=== PATIENT | male | born 1955 | race Caucasian/White ===

== ENCOUNTER 2017-08-16 18:01 | Observation (INO) ==
[2017-08-17] MEDS ORDERED: Albuterol 2.5 MG/3 ML NEBULIZER IH PRN (01:07)
[2017-08-17] MEDS ORDERED: Nitroglycerin 0.4 MG TAB.SUBL SL PRN (01:07)
[2017-08-17] MEDS ORDERED: *HR* Morphine 2 MG/ML SYRINGE IVP PRN (01:09)
[2017-08-17] MEDS ORDERED: Ondansetron 4 MG/2 ML VIAL IVP PRN (01:09)
[2017-08-17] MEDS ORDERED: Acetaminophen 325 MG TABLET PO PRN (01:09)
[2017-08-17] MEDS ORDERED: Naloxone 0.4 MG/ML INJ IVP PRN (01:09)
[2017-08-17] MEDS ORDERED: MOM Conc 10 ML UD.LIQ PO PRN (01:09)
[2017-08-17] MEDS ORDERED: Furosemide 40 MG/4 ML VIAL IVP STA (01:12)
[2017-08-17] MEDS ORDERED: FOSAMAX PO SCH (01:15)
--- NOTE | 2017-08-17 01:17 | Internal Med History&Physical ---
Date of Encounter: 08/17/17 Time of Encounter: 01:15 Assessment and Plan (1) Hip fracture, left Current visit: Yes Status: Acute Left greater trochanter fractures secondary to fall. Apparently he can bear weight but has lot of pain. Orthopedics has been consulted. Consult physical therapy. Pain management. Continue home medication. SCDs for DVT prophylaxis however if no surgery then he can be started on Lovenox. Qualifiers: Encounter type: initial encounter Fracture type: closed Qualified Code(s) : S72.002A - Fracture of unspecified part of neck of left femur, initial encounter for closed fracture (2) Acute diastolic CHF (congestive heart failure) Current visit: Yes Status: Acute Chest x-ray showed some vascular congestion. Previous EF about 60%. IV Lasix 401 and then resume his home dose of Lasix 40 twice a day by mouth check BMP in the morning (3) COPD (chronic obstructive pulmonary disease) Current visit: Yes Status: Acute Start duo nebs Qualifiers: COPD type: emphysema Emphysema type: unspecified Qualified Code(s): J43.9 - Emphysema, unspecified (4) Hypertension Current visit: Yes Status: Acute Resume home medication and daily monitoring Qualifiers: Hypertension type: essential hypertension Qualified Code(s): I10 - Essential (primary) hypertension (5) Dyslipidemia Current visit: Yes Status: Acute Resume home medication (6) UTI (urinary tract infection) Current visit: Yes Status: Acute Urine culture obtain UA is positive for leukocyte IV Rocephin added Qualifiers: Urinary tract infection type: site unspecified Hematuria presence: without hematuria Qualified Code(s): N39.0 - Urinary tract infection, site not specified Internal Medicine - H&P: HPI Chief complaint: Left hip pain Admitted From: Home Plans for Post Hospital Care: Transfer [facility] History of present illness: Mr. Gomez is a 62 year old male with medical history significant for hypertension dyslipidemia coronary artery disease CHF COPD CKD presented with a mechanical fall while he was taking care of his dog outside. He sustained left hip pain but he was able to ambulate due to pain continued to increase therefore he decided to come to ER where chest x-ray showed left greater trochanter comminuted fracture. CT did not show any intertrochanteric fracture. Dr. Mohamud from orthopedics was consulted. No history of headache neck pain chest pain dyspnea palpitation dysuria urgency frequency have actually hematochezia or hematemesis melena. UA is positive for leukocyte therefore cultures obtain and Rocephin has been started. Past Med Surg Social Fam HX - Past Medical History Medical history: CHF, COPD, diabetes, GERD, hyperlipidemia, hypertension, osteoporosis, TIA Psychiatric history: no psych history - Social History Smoking Status: Current every day smoker Smokeless Tobacco Status: No Alcohol use: none Drug use: none - Family History Mother Living Status: Hx Family Cardiac Disorders: Yes Internal Medicine - H&P: Meds Alendronate Sodium [Fosamax] 70 mg PO QWEEK 06/02/17 [History] Atorvastatin [Lipitor] 40 mg PO HS 06/02/17 [History] Budesonide/Formoterol 80/4.5 [Symbicort 80/4.5] 2 puff IH BIDR 06/02/17 [ History] Clopidogrel [Plavix] 75 mg PO DAILY 06/02/17 [History] Divalproex (24 HR) [Depakote ER (24 HR)] 1,000 mg PO HS 06/02/17 [History] Docusate [Colace] 100 mg PO BID 06/02/17 [History] Furosemide [Lasix] 40 mg PO BID 06/02/17 [History] Gabapentin [Neurontin] 100 mg PO TID 06/02/17 [History] Lisinopril [Zestril] 2.5 mg PO DAILY 06/02/17 [History] Metoprolol [Lopressor] 12.5 mg PO DAILY 06/02/17 [History] Montelukast [Singulair] 20 mg PO HS 06/02/17 [History] Morphine Sulfate [Malaika] 1 cap PO BID 06/02/17 [History] Pantoprazole Sodium [Protonix] 40 mg PO BID 06/02/17 [History] Primidone [Mysoline] 100 mg PO BID 06/02/17 [History] Propranolol [Inderal] 20 mg PO TID 06/02/17 [History] Ranitidine HCl [Acid Machine Stone Polisher Apprentice] 150 mg PO BID 06/02/17 [History] Spironolactone [Aldactone] 25 mg PO BID 06/02/17 [History] Venlafaxine HCl [Venlafaxine HCl ER] 37.5 mg PO DAILY 06/02/17 [History] hydrOXYzine HCl [Hydroxyzine HCl] 50 mg PO TID PRN 06/02/17 [History] 3 Allergy/AdvReac Type Severity Reaction Status Date / Time aspirin Allergy Hives Verified 06/02/17 10:54 All Systems PM: A 10-system review of systems was performed and is negative for pertinent findings except as documented above in the HPI. - Constitutional Constitutional: no chills, no fever(s), no night sweats - EENT Eyes: no change in vision, no discharge, no pain, no photophobia Ears: no ear discharge, no ear pain, no tinnitus Nose, mouth and throat: no dysphagia, no nasal discharge, no neck pain, no sore throat - Cardiovascular Cardiovascular ROS IM: no chest pain, no diaphoresis, no dyspnea, no lightheadedness, no palpitations, no syncope - Respiratory Respiratory: no cough, no dyspnea, no wheezing, no excessive phlegm production - Gastrointestinal Gastrointestinal: no abdominal pain, no diarrhea, no hematemesis, no hematochezia, no melena, no nausea, no vomiting - Musculoskeletal Musculoskeletal ROS IM: no numbness, no tingling Additional comments: After pain secondary to greater trochanter fracture and fall - Integumentary Integumentary IM: no rash, no unusual bruising - Neurological Neurological ROS: no confusion, no convulsions, no focal weakness, no numbness, no tingling, no tremor(s) - Hematologic/Lymphatic Hematologic/Lymphatic: no easy bruising - Constitutional Vitals: Temp Pulse Resp BP Pulse Ox 98.1 F 93 17 154/84 92 08/17/17 00:00 08/17/17 00:00 08/17/17 00:00 08/17/17 00:00 08/17/17 00:00 General appearance: Present: A&O X 3, pleasant, no acute distress, answers questions appropriately - Head Head exam: Present: atraumatic, normocephalic - Eye Eye exam: Present: PERRL, conjuntiva pink, sclera anicteric Pupils: Present: PERRL - Neck Neck exam general surgery: Present: supple, trachea midline. Absent: lymphadenopathy - Respiratory Respiratory exam: Present: CTAB. Absent: accessory muscle use, rales, rhonchi, wheezes - Cardiovascular Cardiovascular exam: Present: RRR, +S1, +S2. Absent: diastolic murmur, gallop, rubs, systolic murmur - GI/Abdominal GI/Abdominal exam: Present: normal bowel sounds, soft, no peritoneal signs. Absent: distended, tenderness - Extremities Exam Extremities exam: Present: warm, radial pulses palpable and symmetrical. Absent : calf tenderness, cyanotic, pedal edema Additional comments: Left knee has a small bruise but no significant effusion for range of motion and no joint instability though he is examined in supine position. He can internally rotate left hip with increase in pain on the left greater trochanter area. Localized tenderness is there. - Neurological Exam Neurological exam: Present: CN II-XII intact, oriented X3, no focal deficits. Absent: pronater drift, facial droop, speech deficit - Skin Skin exam: Present: dry, intact
[2017-08-17] MEDS: Divalproex (24 HR) 500 MG TABLET PO SCH ×2 (02:26→23:03)
[2017-08-17] MEDS: Famotidine 20 MG TABLET PO SCH ×3 (02:27→23:04)
[2017-08-17] MEDS: Spironolactone 25 MG TABLET PO SCH ×3 (02:27→23:04)
[2017-08-17] MEDS: Gabapentin 100 MG CAPSULE PO SCH ×4 (02:27→23:04)
[2017-08-17] MEDS: Furosemide 40 MG TABLET PO SCH ×3 (02:35→23:04)
[2017-08-17] MEDS: Ipratropium/Albuterol Neb 3 ML IH SCH ×5 (03:02→23:27)
[2017-08-17 06:27] LABS: BUN/Creatinine Ratio 16 (6-26); Blood Urea Nitrogen 19 mg/dL (8-26); Calcium 9.2 mg/dL (8.6-10.8); Carbon Dioxide 34 mEq/L (19-29); Chloride 98 mEq/L (98-109); Glucose 101 mg/dL (70-99); Osmolality,Calculated 290 (280-300); Potassium 4.1 mEq/L (3.5-4.5); Sodium 139 mEq/L (136-145); eGFR For African Americans > 60 (> 60); eGFR For Non-African Americans > 60 (> 60)
--- NOTE | 2017-08-17 06:45 | Orthopedic Consult Note ---
Date of Encounter: 08/17/17 Time of Encounter: 06:43 History of Present Illness HPI: Mr. Gomez is a 62 year old male Status post fall over the weekend with increasing pain in the left hip and inability to ambulate. Patient seen at [facility] transferred over for treatment. Physical exam left lower extremity neurovascular intact Decreased range of motion secondary to pain CT scan reviewed show fracture of the greater trochanter with concern for propagation into the intratrochanteric region. We will obtain MRI examinations monitoring to further evaluate the fracture pattern to determine if this is surgical versus nonsurgical. Past Med Surg Social Fam HX - Past Medical History Medical history: CHF, COPD, diabetes, GERD, hyperlipidemia, hypertension, osteoporosis, TIA Psychiatric history: no psych history - Social History Smoking Status: Current every day smoker Smokeless Tobacco Status: No Alcohol use: none Drug use: none - Family History Mother Living Status: Hx Family Cardiac Disorders: Yes Medications and Allergies Alendronate Sodium [Fosamax] 70 mg PO QWEEK 06/02/17 [History] Atorvastatin [Lipitor] 40 mg PO HS 06/02/17 [History] Budesonide/Formoterol 80/4.5 [Symbicort 80/4.5] 2 puff IH BIDR 06/02/17 [ History] Clopidogrel [Plavix] 75 mg PO DAILY 06/02/17 [History] Divalproex (24 HR) [Depakote ER (24 HR)] 1,000 mg PO HS 06/02/17 [History] Docusate [Colace] 100 mg PO BID 06/02/17 [History] Furosemide [Lasix] 40 mg PO BID 06/02/17 [History] Gabapentin [Neurontin] 100 mg PO TID 06/02/17 [History] Lisinopril [Zestril] 2.5 mg PO DAILY 06/02/17 [History] Metoprolol [Lopressor] 12.5 mg PO DAILY 06/02/17 [History] Montelukast [Singulair] 20 mg PO HS 06/02/17 [History] Morphine Sulfate [Malaika] 1 cap PO BID 06/02/17 [History] Pantoprazole Sodium [Protonix] 40 mg PO BID 06/02/17 [History] Primidone [Mysoline] 100 mg PO BID 06/02/17 [History] Propranolol [Inderal] 20 mg PO TID 06/02/17 [History] Ranitidine HCl [Acid Government Affairs Fellow] 150 mg PO BID 06/02/17 [History] Spironolactone [Aldactone] 25 mg PO BID 06/02/17 [History] Venlafaxine HCl [Venlafaxine HCl ER] 37.5 mg PO DAILY 06/02/17 [History] hydrOXYzine HCl [Hydroxyzine HCl] 50 mg PO TID PRN 06/02/17 [History] 3 Allergy/AdvReac Type Severity Reaction Status Date / Time aspirin Allergy Hives Verified 06/02/17 10:54 All Systems Reviewed: A 10-system review of systems was performed and is negative for pertinent findings except as documented above in the HPI. Physical Exam - Constitutional Vitals: Temp Pulse Resp BP Pulse Ox 99.1 F 70 17 124/81 96 08/17/17 04:41 08/17/17 04:41 08/17/17 04:41 08/17/17 04:41 08/17/17 04:41 Results - Labs Result Diagrams: 08/17/17 05:13 Labs: Abnormal lab results Carbon Dioxide 34 mEq/L (19-29) H 08/17/17 05:13 Glucose 101 mg/dL (70-99) H 08/17/17 05:13 All other labs normal. Consult Discharge Plan - Plan [facility]: [facility] [Primary Care Provider[facility] -
[2017-08-17] MEDS: Primidone 50 MG TABLET PO SCH ×2 (07:50→23:03)
[2017-08-17] MEDS: Venlafaxine XR (24 HR) 37.5 MG CAP.ER.24H PO SCH (07:52)
[2017-08-17] MEDS: Budesonide/Formoterol 80/4.5 MDI IH SCH ×2 (10:54→23:28)
--- NOTE | 2017-08-17 12:35 | Event Note ---
Date of Encounter: 08/17/17 Time of Encounter: 12:32 MRI reviewed: IMPRESSION: 1. The MRI confirms a nondisplaced greater trochanteric left hip fracture as described above. 2. The MRI also reveals an incomplete fracture line extending to the intertrochanteric region of the left hip. This does not reach the lesser trochanter at this time. 3. Note is made of acute strains of the distal left gluteal and adductor musculature about the left hip. There is an associated left hip joint effusion as expected. 4. Mild osteoarthritis of both hips. Plan reviewed and discussed with . Conservative treatment. Diet as tolerated. WB status: TTWB only x 4-6 weeks to allow fracture to heel. f/up in office in 2 weeks. Appt set, and faxed to the floor 1600: Attempted to call to review plan: [phone] Unable to reach at this time. Noted with nursing staff. Unable to leave VM
--- NOTE | 2017-08-17 12:37 | Internal Med Progress Note ---
Date of Encounter: 08/17/17 Time of Encounter: 12:34 - Assessment and plan (1) Hip fracture, left Current Visit: Yes Status: Acute Assessment and plan: Reviewed CT and hip X rays Pt was seen by Ortho who recommend MRI of Hip - which showed non displaced greater trochanteric left hip fx, incomplete fracture line extending to the inter trochanteric region Ortho on board May be conservative management at this point PT / OT eval on Lovenox for DVT prophylaxis IV analgesics Qualifiers: Encounter type: initial encounter Fracture type: closed Qualified Code(s) : S72.002A - Fracture of unspecified part of neck of left femur, initial encounter for closed fracture (2) Acute diastolic CHF (congestive heart failure) Current Visit: Yes Status: Acute Assessment and plan: Very mild.. CXR sowed slight vascular congestion now improved Cont PO Lasix and other home meds (3) UTI (urinary tract infection) Current Visit: Yes Status: Acute Assessment and plan: UA showed esterase +, could be contaminated too for now cont abx..If urine cx shows no growth will d/c Abx Qualifiers: Urinary tract infection type: site unspecified Hematuria presence: without hematuria Qualified Code(s): N39.0 - Urinary tract infection, site not specified (4) COPD (chronic obstructive pulmonary disease) Current Visit: Yes Status: Chronic Assessment and plan: not in exacerbation cont broncho dilators PRN Qualifiers: COPD type: emphysema Emphysema type: unspecified Qualified Code(s): J43.9 - Emphysema, unspecified (5) Dyslipidemia Current Visit: Yes Status: Chronic Assessment and plan: on home meds (6) Hypertension Current Visit: Yes Status: Acute Assessment and plan: stable with home meds Qualifiers: Hypertension type: essential hypertension Qualified Code(s): I10 - Essential (primary) hypertension - Subjective Interval history: Mr. oGmez is a 62 year old male with medical history significant for hypertension dyslipidemia coronary artery disease CHF COPD CKD presented with a mechanical fall while he was taking care of his dog outside. He sustained left hip pain but he was able to ambulate due to pain continued to increase therefore he decided to go to ER where Hip x-ray and CT scan showed mild non displaced left greater trochanter comminuted fracture. Pt was admitted here for further care. His pain is tolerable with pain medication. he denied any CP / SOB - Constitutional Vitals: Temp Pulse Resp BP Pulse Ox 98.2 F 72 18 107/68 91 08/17/17 11:45 08/17/17 11:45 08/17/17 11:45 08/17/17 11:45 08/17/17 11:45 General appearance: Present: A&O X 3, pleasant, no acute distress, answers questions appropriately - Respiratory Respiratory exam: Present: decreased breath sounds, wheezes. Absent: rales, respiratory distress, rhonchi - Cardiovascular Cardiovascular exam: Present: RRR, +S1, +S2. Absent: systolic murmur - GI/Abdominal GI/Abdominal exam: Present: normal bowel sounds, soft. Absent: rebound, rigid, tenderness - Extremities Exam Extremities exam: Present: tenderness (moderate tenderness in Left hip area). Absent: calf tenderness, pedal edema Additional comments: No erythema noticed over Left hip Limited ROM in Left hip due to severe pain - Back Exam Back exam: Absent: CVA tenderness (L), CVA tenderness (R) - Neurological Exam Neurological exam: Present: alert, oriented X3 - Psychiatric Psychiatric exam: Present: normal affect, normal mood Internal Medicine: Result - Labs CBC & Chem 7: 08/17/17 05:13 Labs: BMP 08/17/17 05:13 Sodium 139 Potassium 4.1 Chloride 98 Carbon Dioxide 34 H BUN 19 Creatinine 1.17 Glucose 101 H Calcium 9.2 - Impressions Impressions Hip MRI 08/17/17 06:38 IMPRESSION: 1. The MRI confirms a nondisplaced greater trochanteric left hip fracture as described above. 2. The MRI also reveals an incomplete fracture line extending to the intertrochanteric region of the left hip. This does not reach the lesser trochanter at this time. 3. Note is made of acute strains of the distal left gluteal and adductor musculature about the left hip. There is an associated left hip joint effusion as expected. 4. Mild osteoarthritis of both hips. D/ / Mustapha Carvajal MD / Mustapha Carvajal MD Interpreting Provider: Mustapha Carvajal MD - VTE Documentation of Mechanical Device: Intermittent pneumatic compression device Consult Discharge Plan - Plan [facility]errals: [facility] [Primary Care Provider] -
[2017-08-18] MEDS: Ipratropium/Albuterol Neb 3 ML IH SCH ×3 (04:47→16:24)
--- NOTE | 2017-08-18 08:10 | Orthopedics Progress Note ---
Date of Encounter: 08/18/17 Time of Encounter: 08:09 Subjective Interval history: patient seen this morning still complaining of some hip pain. Discussed a treatment plan based on MRI which shows greater trocar fracture with some extension into the intertrochanteric region but no communication with medial cortex. Patient has significant medical comorbidities high-risk surgical candidate we will continue to monitor with serial x-rays the plan is for minimal weightbearing nonoperative management. Objective Vital signs: Vital Signs Temp Pulse Resp BP Pulse Ox 08/18/17 07:04 98.8 F 82 14 129/79 97 08/18/17 05:03 92 08/18/17 04:47 16 92 08/18/17 03:40 98.5 F 64 16 128/71 98 08/17/17 23:28 16 93 08/17/17 23:27 99.2 F 73 16 134/84 94 08/17/17 19:40 99.3 F 81 16 95/60 93 08/17/17 16:42 99.0 F 71 15 124/77 93 08/17/17 15:26 18 91 08/17/17 11:45 98.2 F 72 18 107/68 91 08/17/17 11:24 99.0 F 68 14 118/77 94 08/17/17 10:58 15 92 Intake and Output 08/17/17 08/18/17 08/18/17 23:59 07:59 15:59 Intake Total 480 / 480 Output Total 350 / 350 350 / 350 Balance 130 / 130 -350 / -350 Intake: Oral 480 / 480 Output: Urine 350 / 350 350 / 350 Other: Meal Dinner Percent of Meal Consumed 100% Weight 88.7 kg Blood Glucose* 142 127 Patient Weight 08/18/17 23:59 Weight 88.7 kg - Labs CBC & BMP: 08/17/17 05:13 Labs: Abnormal lab results Carbon Dioxide 34 mEq/L (19-29) H 08/17/17 05:13 Glucose 101 mg/dL (70-99) H 08/17/17 05:13 POC Glucose 127 (58-89) H 08/18/17 07:08 - VTE Documentation of Mechanical Device: Intermittent pneumatic compression device Consult Discharge Plan - Plan Referrals: Fe Arellano, PAC [Physician Jewelry Appraiser] - 08/31/17 1:40 pm [facility] [Primary Care Provider] -
[2017-08-18] MEDS: Furosemide 40 MG TABLET PO SCH (08:30)
[2017-08-18] MEDS: Famotidine 20 MG TABLET PO SCH (08:30)
[2017-08-18] MEDS: Primidone 50 MG TABLET PO SCH (08:30)
[2017-08-18] MEDS: Spironolactone 25 MG TABLET PO SCH (08:30)
[2017-08-18] MEDS: Venlafaxine XR (24 HR) 37.5 MG CAP.ER.24H PO SCH (08:30)
[2017-08-18] MEDS: Gabapentin 100 MG CAPSULE PO SCH ×2 (09:00→15:15)
[2017-08-18] MEDS: Budesonide/Formoterol 80/4.5 MDI IH SCH (11:06)
[2017-08-18] MEDS ORDERED: *HR* OxyCODONE/APAP 5/325 TABLET PO PRN (11:16)
--- NOTE | 2017-08-18 12:28 | Internal Med Progress Note ---
Date of Encounter: 08/18/17 Time of Encounter: 11:15 - Assessment and plan (1) Hip fracture, left Current Visit: Yes Status: Acute Assessment and plan: Reviewed CT and hip X rays Pt was seen by Ortho who recommend MRI of Hip - which showed non displaced greater trochanteric left hip fx, incomplete fracture line extending to the inter trochanteric region Ortho on board May be conservative management at this point PT / OT eval on Lovenox for DVT prophylaxis IV and PO analgesics May need short term rehab .Pt prefers to go to [facility] for that SW is working on it Qualifiers: Encounter type: initial encounter Fracture type: closed Qualified Code(s) : S72.002A - Fracture of unspecified part of neck of left femur, initial encounter for closed fracture (2) Acute diastolic CHF (congestive heart failure) Current Visit: Yes Status: Acute Assessment and plan: Very mild.. CXR sowed slight vascular congestion now improved Cont PO Lasix and other home meds (3) UTI (urinary tract infection) Current Visit: Yes Status: Acute Assessment and plan: UA showed esterase +, could be contaminated too for now cont abx..If urine cx shows no growth will d/c Abx Qualifiers: Urinary tract infection type: site unspecified Hematuria presence: without hematuria Qualified Code(s): N39.0 - Urinary tract infection, site not specified (4) COPD (chronic obstructive pulmonary disease) Current Visit: Yes Status: Chronic Assessment and plan: not in exacerbation cont broncho dilators PRN Qualifiers: COPD type: emphysema Emphysema type: unspecified Qualified Code(s): J43.9 - Emphysema, unspecified (5) Dyslipidemia Current Visit: Yes Status: Chronic Assessment and plan: on home meds (6) Hypertension Current Visit: Yes Status: Acute Assessment and plan: stable with home meds Qualifiers: Hypertension type: essential hypertension Qualified Code(s): I10 - Essential (primary) hypertension - Subjective Interval history: Mr. Gomez is a 62 year old male with medical history significant for hypertension dyslipidemia coronary artery disease CHF COPD CKD presented with a mechanical fall while he was taking care of his dog outside. He sustained left hip pain but he was able to ambulate due to pain continued to increase therefore he decided to go to ER where Hip x-ray and CT scan showed mild non displaced left greater trochanter comminuted fracture. Pt was admitted here for further care. His pain is tolerable with pain medication. He denied any CP / SOB..He is comfortably resting in the bed. - Constitutional Vitals: Temp Pulse Resp BP Pulse Ox 98.8 F 82 20 129/79 92 08/18/17 07:04 08/18/17 07:04 08/18/17 11:07 08/18/17 07:04 08/18/17 11:07 General appearance: Present: A&O X 3, pleasant, no acute distress, answers questions appropriately - Head Head exam: Present: atraumatic, normal inspection - Neck Neck exam general surgery: Present: supple - Respiratory Respiratory exam: Present: decreased breath sounds, wheezes (mild). Absent: chest wall tenderness, rales, respiratory distress, rhonchi - Cardiovascular Cardiovascular exam: Present: RRR, +S1, +S2. Absent: systolic murmur - GI/Abdominal GI/Abdominal exam: Present: soft. Absent: rebound, rigid, tenderness - Extremities Exam Extremities exam: Present: tenderness (mild tenderness Left hip area). Absent: calf tenderness, pedal edema Additional comments: Limited ROM in Left hip due to pain - Back Exam Back exam: Absent: CVA tenderness (L), CVA tenderness (R) - Neurological Exam Neurological exam: Present: alert, oriented X3 - Psychiatric Psychiatric exam: Present: normal affect, normal mood Internal Medicine: Result - Labs CBC & Chem 7: 08/17/17 05:13 - VTE Documentation of Mechanical Device: Intermittent pneumatic compression device Consult Discharge Plan - Plan Referrals: Fe Arellano PAC [Physician Manufacturing Engineering Professor] - 08/31/17 1:40 pm [facility] [Primary Care Provider[facility] -
[2017-08-18 12:30] VITALS: BP 108/73
--- NOTE | 2017-08-18 16:10 | Discharge Summary ---
Date of Encounter: 08/18/17 Time of Encounter: 16:02 - Discharge Diagnosis (1) Hip fracture, left Priority: Primary Status: Acute Qualifiers: Encounter type: initial encounter Fracture type: closed Qualified Code(s) : S72.002A - Fracture of unspecified part of neck of left femur, initial encounter for closed fracture (2) Acute diastolic CHF (congestive heart failure) Priority: Primary Status: Acute (3) COPD (chronic obstructive pulmonary disease) Priority: Secondary Status: Chronic Qualifiers: COPD type: emphysema Emphysema type: unspecified Qualified Code(s): J43.9 - Emphysema, unspecified (4) Dyslipidemia Priority: Secondary Status: Chronic (5) Hypertension Priority: Secondary Status: Acute Qualifiers: Hypertension type: essential hypertension Qualified Code(s): I10 - Essential (primary) hypertension - Discharge Medications Prescriptions: OxyCODONE/APAP 5/325 [Percocet 5/325 MG] 1 each PO Q6HR PRN #20 tablet PRN Reason: Pain Morphine Sulfate [Malaika] 30 mg PO BID #15 cap.er.pel Home Medications: Alendronate Sodium [Fosamax] 70 mg PO QWEEK 06/02/17 [History] Atorvastatin [Lipitor] 40 mg PO HS 06/02/17 [History] Budesonide/Formoterol 80/4.5 [Symbicort 80/4.5] 2 puff IH BIDR 06/02/17 [ History] Clopidogrel [Plavix] 75 mg PO DAILY 06/02/17 [History] Divalproex (24 HR) [Depakote ER (24 HR)] 1,000 mg PO HS 06/02/17 [History] Docusate [Colace] 100 mg PO BID 06/02/17 [History] Furosemide [Lasix] 40 mg PO BID 06/02/17 [History] Gabapentin [Neurontin] 100 mg PO TID 06/02/17 [History] Lisinopril [Zestril] 2.5 mg PO DAILY 06/02/17 [History] Metoprolol [Lopressor] 12.5 mg PO DAILY 06/02/17 [History] Montelukast [Singulair] 10 mg PO HS 06/02/17 [History] Pantoprazole Sodium [Protonix] 40 mg PO BID 06/02/17 [History] Primidone [Mysoline] 100 mg PO BID 06/02/17 [History] Propranolol [Inderal] 10 mg PO TID 06/02/17 [History] Ranitidine HCl [Acid Banana Carrier] 150 mg PO BID 06/02/17 [History] Spironolactone [Aldactone] 25 mg PO BID 06/02/17 [History] hydrOXYzine HCl [Hydroxyzine HCl] 50 mg PO TID PRN 06/02/17 [History] Venlafaxine XR (24 HR) [Effexor Xr] 300 mg PO QAM 08/17/17 [History] Ipratropium/Albuterol Neb [Duoneb] 3 ml IH QIDR PRN inhsol 08/18/17 [Rx] Morphine Sulfate [Malaika] 30 mg PO BID #15 cap.er.pel 08/18/17 [Rx] OxyCODONE/APAP 5/325 [Percocet 5/325 MG] 1 each PO Q6HR PRN #20 tablet 08/18/17 [Rx] Allergies/Adverse Reactions: 3 Allergy/AdvReac Type Severity Reaction Status Date / Time aspirin Allergy Hives Verified 06/02/17 10:54 Procedures/tests Complete & Pending: Procedures Performed prior 72 hours Category Date Time Status MR hip LT wo con [MR] Stat MRI 08/17/17 06:38 Completed Date of admission: 08/16/17 19:49 [facility] care physician: [facility] Consults: 08/17/17 01:11 Consult to Physician [CONS] Routine Consulting Provider: Martínez Prater Reason for Consult: Right greater trochanter fracture. ER already notified Dr. Mohamud Time Notified: 01:12 Call Completed: Yes 08/17/17 19:08 Consult to Nutrition [CONS] Routine Comment: Consulting Provider: NUTRITION Reason for Dietary Consult: MST Score 08/18/17 11:07 Consult to Physical Therapy [CONS] Routine Comment: Evaluate, develop and implement POC Reason for Consult: Left hip fracture OT [Consult to Occupational Therapy] [CONS] Routine Comment: Evaluate, develop and implement POC Reason for Consult: Left hip fracture 08/18/17 11:18 Consult to Set Up Person [CONS] Routine Reason for SW Consult: Possible follow up therapy. - Patient Status Disposition: Transfer SNF Condition: Good Overall status at discharge: patient is back to baseline - Discharge Instructions Follow Up With: Fe Arellano PAC [Physician Pattern Setter] - 08/31/17 1:40 pm [facility],PCP [Primary Care Provider] - Martínez Prater MD [Partnered Physician] - Additional Instructions: Need to f/u with Ortho Dr. Prater in 1 week - Diet and Activity Activity: as per physical therapy Diet: low salt diet Interval History: Mr. Gomez is a 62 year old male with medical history significant for hypertension dyslipidemia coronary artery disease CHF COPD CKD presented with a mechanical fall while he was taking care of his dog outside. He sustained left hip pain but he was able to ambulate due to pain continued to increase therefore he decided to go to ER where Hip x-ray and CT scan showed mild non displaced left greater trochanter comminuted fracture. Pt was admitted here for pain management and further care regarding his hip fracture. Pt was evaluated by Ortho who recommend for conservative management only, with serial X rays of hip and minimal weightbearing. So will d/c him to ECF for short term PT / OT. Hospital course: Mr. Gomez is a 62 year old male - Time Spent with Patient Total time spent providing and/or coordinating discharge services: - Constitutional Vitals: Temp Pulse Resp BP Pulse Ox 98.5 F 66 15 108/73 97 08/18/17 12:28 08/18/17 12:28 08/18/17 12:28 08/18/17 12:28 08/18/17 12:28 General appearance: Present: A&O X 3, pleasant, no acute distress, answers questions appropriately - Head Head exam: Present: atraumatic, normal inspection - Respiratory Respiratory exam: Present: decreased breath sounds. Absent: rales, respiratory distress, rhonchi, wheezes - Cardiovascular Cardiovascular exam: Present: RRR, +S1, +S2. Absent: rubs, systolic murmur - GI/Abdominal GI/Abdominal exam: Present: soft. Absent: distended, rebound, rigid, tenderness - Extremities Exam Extremities exam: Present: tenderness (mild tenderness in Left hip). Absent: calf tenderness, pedal edema Additional comments: limited ROM in Left hip due to pain - Neurological Exam Neurological exam: Present: alert, oriented X3 - Psychiatric Psychiatric exam: Present: normal affect, normal mood - VTE Documentation of Mechanical Device: Intermittent pneumatic compression device
--- NOTE | 2017-08-18 16:15 | Physician Discharge Referral ---
ExtendedCare Referral Info Transfer To: F Provider in Charge after Transfer: PCP Institutional Level of Care: Skilled - Diagnosis (1) Hip fracture, left Status: Acute (2) Acute diastolic CHF (congestive heart failure) Status: Acute (3) COPD (chronic obstructive pulmonary disease) Status: Chronic (4) Dyslipidemia Status: Chronic (5) Hypertension Status: Acute - Transfer Medications Prescriptions: OxyCODONE/APAP 5/325 [Percocet 5/325 MG] 1 each PO Q6HR PRN #20 tablet PRN Reason: Pain Morphine Sulfate [Malaika] 30 mg PO BID #15 cap.er.pel Home Medications: Alendronate Sodium [Fosamax] 70 mg PO QWEEK 06/02/17 [History] Atorvastatin [Lipitor] 40 mg PO HS 06/02/17 [History] Budesonide/Formoterol 80/4.5 [Symbicort 80/4.5] 2 puff IH BIDR 06/02/17 [ History] Clopidogrel [Plavix] 75 mg PO DAILY 06/02/17 [History] Divalproex (24 HR) [Depakote ER (24 HR)] 1,000 mg PO HS 06/02/17 [History] Docusate [Colace] 100 mg PO BID 06/02/17 [History] Furosemide [Lasix] 40 mg PO BID 06/02/17 [History] Gabapentin [Neurontin] 100 mg PO TID 06/02/17 [History] Lisinopril [Zestril] 2.5 mg PO DAILY 06/02/17 [History] Metoprolol [Lopressor] 12.5 mg PO DAILY 06/02/17 [History] Montelukast [Singulair] 10 mg PO HS 06/02/17 [History] Pantoprazole Sodium [Protonix] 40 mg PO BID 06/02/17 [History] Primidone [Mysoline] 100 mg PO BID 06/02/17 [History] Propranolol [Inderal] 10 mg PO TID 06/02/17 [History] Ranitidine HCl [Acid Coke Crusher Operator] 150 mg PO BID 06/02/17 [History] Spironolactone [Aldactone] 25 mg PO BID 06/02/17 [History] hydrOXYzine HCl [Hydroxyzine HCl] 50 mg PO TID PRN 06/02/17 [History] Venlafaxine XR (24 HR) [Effexor Xr] 300 mg PO QAM 08/17/17 [History] Ipratropium/Albuterol Neb [Duoneb] 3 ml IH QIDR PRN inhsol 08/18/17 [Rx] Morphine Sulfate [Malaika] 30 mg PO BID #15 cap.er.pel 08/18/17 [Rx] OxyCODONE/APAP 5/325 [Percocet 5/325 MG] 1 each PO Q6HR PRN #20 tablet 08/18/17 [Rx] Allergies/Adverse Reactions: 3 Allergy/AdvReac Type Severity Reaction Status Date / Time aspirin Allergy Hives Verified 06/02/17 10:54 - Respiratory Orders Smoking Cessation: Smoking cessation has been advised. For more information, call the [place] Tobacco Quit Line at 6-674-PFBC-NOW. CERTIFICATION: I certify that the transfer of the above named patient to an Extended Care Facility is necessary for the continuing treatment of the diagnosis listed. The above information is true and accurate reflection of patient's current condition. Confidential - Redisclosure prohibited without a patient's written consent.
== END 2017-08-18 18:30 ==
LOC: 3ANU 19:49 → INTOOBSV 19:49 → SUATTDRO 19:49 → 3NENU 20:06
PROVIDERS: ADMIT Internal Medicine; ATTEND Family Medicine

== ENCOUNTER 2022-05-05 06:05 | Inpatient (IN) ==
[2022-05-05] MEDS ORDERED: CeFAZolin Syr 2,000MG/20 ML 2,000 MG/20 ML SYRINGE IVPB ONE (06:13)
[2022-05-05] MEDS ORDERED: Ringers Solution, Lactated 1,000 ML IVC SCH (06:15)
[2022-05-05] MEDS ORDERED: Protamine Sulfate 50 MG/5 ML VIAL IVP ONE (07:06)
[2022-05-05] MEDS ORDERED: Heparin 1,000 UNITS/500 mL 500 ML ONE (07:06)
[2022-05-05] MEDS ORDERED: Ipratropium/Albuterol Neb 3 ML IH ONE (07:07)
[2022-05-05] MEDS ORDERED: *HR* Heparin 5,000 UNIT/ML VIAL ONE ×2 (07:14→07:38)
[2022-05-05] MEDS ORDERED: *HR* FentaNYL (PF) 100 MCG/2 ML VIAL ONE (07:14)
[2022-05-05] MEDS ORDERED: Ondansetron 4 MG/2 ML VIAL ONE (07:15)
[2022-05-05] MEDS ORDERED: Lidocaine -MPF 2% 5 ML VIAL ONE (07:15)
[2022-05-05] MEDS ORDERED: *HR* Succinylcholine 200 MG/10 ML VIAL IVP ONE (07:15)
[2022-05-05] MEDS ORDERED: *HR* Rocuronium Bromide 50 MG/5 ML VIAL ONE ×2 (07:15→10:50)
[2022-05-05] MEDS ORDERED: *HR* Propofol 200 MG/20 ML VIAL IVP ONE ×2 (07:15→09:52)
[2022-05-05] MEDS ORDERED: *HR* HYDROmorphone PF 0.5 MG/0.5 ML SYRINGE IVP PRN (07:15)
[2022-05-05] MEDS ORDERED: *HR* Phenylephrine 10 MG/ML VIAL ONE (07:15)
[2022-05-05] MEDS ORDERED: Lidocaine HCL 4 ML Topical Solution (Laryng-O-Jet Kit Sterile Pak) TP ONE (07:15)
[2022-05-05] MEDS ORDERED: *HR* Remifentanil 2 MG VIAL IVP ONE (07:22)
[2022-05-05] MEDS ORDERED: Albumin Human 5% 0 GM/0 ML IV.SOLN ONE (07:38)
[2022-05-05] MEDS ORDERED: Dexmedetomidine HCl 0 MCG/0 ML MLS IVC ONE (07:38)
[2022-05-05] MEDS ORDERED: *HR* Vasopressin 20 UNIT/ML VIAL ONE (07:39)
[2022-05-05] MEDS ORDERED: niCARdipine 0 MG/0 ML MLS IVC ONE (07:39)
[2022-05-05] MEDS ORDERED: ceFAZolin 1,000 MG, Sodium Chloride IRRigation 1,000 ML IR ONE (07:45)
[2022-05-05] MEDS ORDERED: EPHEDrine 50 MG/ML VIAL ONE ×2 (09:15→11:28)
[2022-05-05] MEDS ORDERED: Acetaminophen IV 1,000 MG/100 ML BAG IVPB ONE ×2 (11:16→11:20)
[2022-05-05] MEDS ORDERED: Sugammadex Sodium 200 MG/2 ML VIAL IV ONE ×2 (12:03)
[2022-05-05] MEDS ORDERED: Ipratropium/Albuterol Neb 3 ML IH PRN (13:00)
[2022-05-05] MEDS ORDERED: *HR* HYDROcodone/Acet 5/325 mg TABLET PO PRN (13:00)
[2022-05-05] MEDS ORDERED: NON-FORMULARY MEDICATION 1 EACH EACH (Oxygen 1 EACH Each) PRN (13:00)
[2022-05-05] MEDS ORDERED: Ondansetron 4 MG/2 ML VIAL IVP PRN (13:00)
[2022-05-05] MEDS ORDERED: Acetaminophen 325 MG TABLET PO PRN (13:00)
[2022-05-05] MEDS ORDERED: Naloxone 0.4 MG/ML INJ IVP PRN (13:00)
[2022-05-05] MEDS ORDERED: *HR* OxyCODONE Immed Rel 5 MG TABLET PO PRN (13:00)
[2022-05-05] MEDS: Gabapentin 100 MG CAPSULE PO SCH ×2 (17:14→22:03)
[2022-05-05] MEDS: Spironolactone 25 MG TABLET PO SCH (17:14)
[2022-05-05] MEDS: CeFAZolin 2 GM/120 ML BAG IVPB SCH (17:14)
[2022-05-05] MEDS: Nicotine 21 MG PATCH.TD24 TD SCH (18:54)
[2022-05-05] MEDS: Budesonide/Formoterol 80/4.5 1 PUFF INH IH SCH (19:36)
[2022-05-05] MEDS ORDERED: Spironolactone 25 MG TABLET PO SCH (21:00)
[2022-05-05] MEDS ORDERED: Divalproex (24 HR) 500 MG TABLET PO SCH (21:00)
[2022-05-05] MEDS: Morphine Sulfate ER (12 HR) 15 MG TABLET.ER PO SCH (22:03)
[2022-05-06 02:10] LABS: Hematocrit 37.4 % (37.5-50.1); Immature Granulocytes % 0.4 % (0-4); Lymphocytes # 1.3 K/mcL (0.6-4.6); Lymphocytes % 11.6 %; Mean Corpuscular HGB Conc 32.1 g/dL (31.6-35.5); Mean Corpuscular Hemoglobin 29.8 pg (28.0-33.3); Mean Corpuscular Volume 92.8 fL (83.0-100.0); Mean Platelet Volume 11.8 fL (9.4-12.4); Monocytes # 0.5 K/mcL (0.0-1.3); Monocytes % 4.5 %; Neutrophils # 9.5 K/mcL (1.6-8.9); Platelet Count 204 K/mcL (140-400); Red Blood Count 4.03 M/mcL (4.19-5.50); Red Cell Distribution Width 14.4 % (11.5-14.5); Segmented Neutrophils % 83.5 %; White Blood Count 11.4 K/mcL (4.3-11.1)
[2022-05-06 02:29] LABS: BUN/Creatinine Ratio 17 (6-26); Blood Urea Nitrogen 20 mg/dL (8-23); Calcium 8.2 mg/dL (8.6-10.3); Carbon Dioxide 24 mEq/L (23-29); Chloride 106 mEq/L (98-107); Glucose 158 mg/dL (70-105); Osmolality,Calculated 286 (280-300); Potassium 4.6 mEq/L (3.5-5.1); Sodium 135 mEq/L (136-145); eGFR For African Americans > 60 (> 60); eGFR For Non-African Americans > 60 (> 60)
[2022-05-06] MEDS: CeFAZolin 2 GM/120 ML BAG IVPB SCH ×2 (02:35→07:58)
[2022-05-06] MEDS: Budesonide/Formoterol 80/4.5 1 PUFF INH IH SCH (07:37)
[2022-05-06] MEDS: Nicotine 21 MG PATCH.TD24 TD SCH (07:47)
[2022-05-06] MEDS: Spironolactone 25 MG TABLET PO SCH (07:49)
[2022-05-06] MEDS: Gabapentin 100 MG CAPSULE PO SCH (07:51)
[2022-05-06] MEDS ORDERED: Venlafaxine XR (24 HR) 150 MG CAP.ER.24H PO SCH (09:00)
[2022-05-06] MEDS: Morphine Sulfate ER (12 HR) 15 MG TABLET.ER PO SCH (09:45)
[2022-05-06 12:03] VITALS: BP 161/62; TEMP 97.6; O2SAT 100
[2022-05-06 14:09] VITALS: PULSE 72
== END 2022-05-06 15:55 | disposition home or self-care (01) | DRG 38 ==
LOC: SAMDAY 06:05 → 2NNU 12:59
PROVIDERS: ADMIT Surgery Vascular Surgery; ATTEND Surgery Vascular Surgery